=== PATIENT | male | born 1995 | race Caucasian/White ===

== ENCOUNTER 2018-06-18 09:11 | Day surgery (SDC) | payer BC ==
[~2018-06-18] VITALS: Ht 185.4 cm; Wt 99.3 kg
[2018-06-18 09:44] VITALS: BP 140/81; Ht 185.4 cm; Wt 99.3 kg
[2018-06-18] MEDS ORDERED: HYDROCODON-ACE1 EAC7 PO (11:48)
== END 2018-06-18 13:48 | disposition home or self-care (01) ==
LOC: D.OPS 09:11 → D.PAN 12:00 → D.OPS 12:00
DX: K80.10 Calculus of gallbladder with chronic cholecystitis without obstruction (principal); Z01.812 Encounter for preprocedural laboratory examination